=== PATIENT | male | born 1960 | race Two or more races ===

== ENCOUNTER 2024-08-25 07:30 | Day surgery (SDC) | payer MEDICAID, SELFPAY ==
[2024-08-24 11:26] VITALS: BMI 31.9
[2024-08-25] VITALS (10 sets, daily range): BP systolic 115–135; BP diastolic 70–88; PULSE 63–84; RESP 12–21; TEMP 36.6–36.8; O2SAT 96–100; BMI 31.3
[2024-08-25] MEDS: fentaNYL CIT INJ 50 mCg/ML AMP 2ML IV (08:57)
[2024-08-25] MEDS: MIDAZOLAM INJ 1 MG/ML VIAL 2 ML 2 MG IV (08:57)
[2024-08-25] MEDS: DiphenhydrAMINE INJ 50 MG/ML VIAL 25 MG IV (08:57)
[2024-08-25] MEDS: SIMETHICONE 40 MG/0.6 ML ORAL SYRINGE PO (09:05)
--- NOTE | 2024-08-25 09:15 | SUR.PHASEII ---
Patient into recovery room with no acute distress noted, v/s stable, no complaints of pain or nausea at this time. Patient repositions self for comfort. Patient sctively passing flatus. Report received from Kutris VARELA.
== END 2024-08-25 10:00 | disposition home or self-care (01) ==
PROVIDERS: PCP Family Medicine; Referring Provider Surgery; Visit Provider Surgery
PROC: 0DBE8ZX Excision of Large Intestine, Via Natural or Artificial Opening Endoscopic, Diagnostic (ICD-10-PCS; CPT 45380; principal; 2024-08-25 09:00)
DX: Z12.11 Encounter for screening for malignant neoplasm of colon (principal); D12.2 Benign neoplasm of ascending colon; K64.1 Second degree hemorrhoids; K57.30 Diverticulosis of large intestine without perforation or abscess without bleeding
CPT/HCPCS: 45385; 45380; J1200; J2250; J3010; A9270